=== PATIENT | female | born 1980 | race African-American/Black ===

== ENCOUNTER 2017-09-15 16:00 | Emergency (ER) | payer OTHER, MEDICAID ==
[~2017-09-15] VITALS: Ht 160 cm; Wt 87.0 kg
[~2017-09-15 16:00] MED LIST: IBUP800T23 PO; METH500T3 PO
[2017-09-15 16:01] VITALS: BP 170/118; PULSE 97; RESP 18; TEMP 98.7; O2SAT 97
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
[2017-09-15] MEDS ORDERED: ORPHENADRINE INJ 60 MG/2 ML AMP IM ONE (17:15)
[2017-09-15] MEDS ORDERED: KETOROLAC TROMETHAMINE 60 MG/2 ML (IM) VIAL IM ONE (17:15)
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
[2017-09-15] MEDS ORDERED: ROBA500T PO (17:59)
== END 2017-09-15 18:34 | disposition home or self-care (01) ==
LOC: NEPD 16:00
DX: S40.012A Contusion of left shoulder, initial encounter (principal); S50.02XA Contusion of left elbow, initial encounter; M62.830 Muscle spasm of back; V43.52XA Car driver injured in collision with other type car in traffic accident, initial encounter
CPT/HCPCS: 73030; 73080; 73090; 96372; 99284; J1885; J2360

== ENCOUNTER 2017-10-29 03:11 | Emergency (ER) | payer MEDICAID ==
[~2017-10-29] VITALS: Ht 160 cm; Wt 85.0 kg
[~2017-10-29 03:11] MED LIST changes: +ROBA500T PO
[2017-10-29 03:14] VITALS: BP 144/95; PULSE 106; RESP 16; TEMP 98.2; O2SAT 99
[2017-10-29] MEDS ORDERED: HYDR-3580 PO (03:27)
[2017-10-29] MEDS ORDERED: SODIUM CHLOR 0.9% 1000 ML INJ 1,000 ML IV ONE (04:00)
[2017-10-29] MEDS ORDERED: AMOX875T PO (04:54)
--- NOTE | 2017-10-29 04:54 | PD ---
HPI Chief Complaint: Cold / Flu Symptoms Time Seen by Provider: 03:19 Travel History International Travel<30 days: No Contact w/Intl Traveler<30days: No Traveled to known affect area: No History of Present Illness HPI Patient is a 37-year-old female presenting to emergency room for evaluation of sore throat, body aches, fever, chills. Patient states his symptoms started 1 day ago, she reports that it hurts to swallow but denies any dysphagia or drooling. Patient took acetaminophen at 10 PM and then ibuprofen at 2:30 AM this morning. Symptom onset was gradual, alleviating factors include medications. There are no exacerbating factors. Patient states her pain is 3 out of 10 and states that sore and aching. Patient denies any significant past medical history. PFSH Past Medical History Anemia: Yes (DURING ) Blood Disorders: No Heart Rhythm Problems: No Cancer: No High Cholesterol: No Chemotherapy: No Chest Pain: No Congestive Heart Failure: No Diminished Hearing: No Endocrine: No Gastrointestinal Disorders: Yes (GALLBLADDER DISEASE WITH GALL STONES) Genitourinary: No Hypertension: No Immune Disorder: No Musculoskeletal: No Neurologic: No Psychiatric: No Respiratory: No Immunizations Current: Yes Myocardial Infarction: No Radiation Therapy: No ?: Not : 5 Para: 4 Miscarriage: 1 Past Surgical History AICD: No Section: Yes (x4) Joint Replacement: No Pacemaker: No Other Surgery: No Social History Alcohol Use: Yes (socially) Tobacco Use: No Substance Use: No Allergies-Medications (Allergen,Severity, Reaction): Coded Allergies: No Known Allergies (Verified Adverse Reaction, Unknown, 10/29/17) Reported Meds & Prescriptions Reported Meds & Active Scripts Active Reported Hydrocodone-Acetaminophen 7.5 Mg-325 Mg Tab 1 Tab PO Q6H PRN Review of Systems Except as stated in HPI: all other systems reviewed are Neg General / Constitutional: Positive: Fever, Chills HENT: Positive: Sore Throat Cardiovascular: No: Chest Pain or Discomfort Respiratory: No: Cough, Shortness of Breath Gastrointestinal: No: Nausea, Abdominal Pain Genitourinary: No: Dysuria Musculoskeletal: No: Myalgias Physical Exam Narrative GENERAL: Well-developed, well-nourished female. Presented in no acute distress. SKIN: Warm and dry. HEAD: Atraumatic. Normocephalic. EYES: Pupils equal and round. No scleral icterus. No injection or drainage. ENT: No nasal bleeding or discharge. Mucous membranes pink and moist. Erythema noted to posterior pharynx, no tonsillar hypertrophy. Airways patent, uvula is midline. NECK: Trachea midline. No JVD. CARDIOVASCULAR: Regular rate and rhythm. RESPIRATORY: No accessory muscle use. Clear to auscultation. Breath sounds equal bilaterally. GASTROINTESTINAL: Abdomen soft, non-tender, nondistended. Hepatic and splenic margins not palpable. MUSCULOSKELETAL: Extremities without clubbing, cyanosis, or edema. No obvious deformities. NEUROLOGICAL: Awake and alert. No obvious cranial nerve deficits. Motor grossly within normal limits. Five out of 5 muscle strength in the arms and legs. Normal speech. PSYCHIATRIC: Appropriate mood and affect; insight and judgment normal. Data Data Last Documented VS Vital Signs Date Time Temp Pulse Resp B/P (MAP) Pulse Ox O2 Delivery O2 Flow Rate FiO2 10/29/17 03:14 98.2 106 16 144/95 (111) 99 Orders Orders Group A Rapid Strep Screen (10/29/17 03:48) Influenzae A/B Antigen (10/29/17 03:48) Iv Access Insert/Monitor (10/29/17 03:48) Sodium Chlor 0.9% 1000 Ml Inj (Ns 1000 M (10/29/17 04:00) Amoxicillin (Trimox) (10/29/17 05:00) MDM Medical Decision Making Medical Screen Exam Complete: Yes Emergency Medical Condition: Yes Interpretation(s) Vital Signs Date Time Temp Pulse Resp B/P (MAP) Pulse Ox O2 Delivery O2 Flow Rate FiO2 10/29/17 03:14 98.2 106 16 144/95 (111) 99 Differential Diagnosis Influenza versus strep versus viral syndrome versus other Narrative Course Patient's 37-year-old female presented to emergency for evaluation of sore throat, body aches, fevers. Patient is mildly tachycardic on arrival, IV fluids ordered, influenza and strep screen ordered. Patient is resting comfortably. She took ibuprofen 2 hours prior to arrival. Patient is negative for influenza, strep is positive for group A strep. Patient will be given dose of amoxicillin now. She is encouraged to complete full course, maintain adequate fluid intake, continue with Tylenol and/or ibuprofen as needed and as directed for fevers and body aches. She is encouraged to follow-up with her primary doctor return to emergency department any new or worsening symptoms. Patient verbalizes understanding of directions. Patient stable for discharge. Diagnosis Primary Impression: Pharyngitis due to group A beta hemolytic Streptococci Referrals: Primary Care Physician 3 days Patient Instructions: General Instructions, Strep Throat (ED) Additional Instructions: Complete full course of antibiotics as prescribed Maintain adequate fluid intake Continue alternating acetaminophen and ibuprofen as needed and as directed for fevers and body aches Return to emergency department for any new or worsening symptoms Follow-up with your primary doctor Med/Other Pt SpecificInfo: Prescription(s) given Scripts Amoxicillin (Amoxicillin) 875 Mg Tab 875 MG PO BID for Infection for 10 Days, #20 TAB 0 Refills Prov: Faith Szymanski 10/29/17 Disposition: 01 DISCHARGE HOME Condition: Stable Faith Szymanski Oct 29, 2017 04:54
[2017-10-29] MEDS ORDERED: AMOXICILLIN 875 MG TAB PO ONE (05:00)
== END 2017-10-29 05:16 | disposition home or self-care (01) ==
LOC: NEPD 03:11
DX: J02.0 Streptococcal pharyngitis (principal); R00.0 Tachycardia, unspecified; D64.9 Anemia, unspecified
CPT/HCPCS: 87804; 87880; 96360; 99284; J7030

== ENCOUNTER 2018-03-19 06:23 | Emergency (ER) | payer MEDICAID ==
[~2018-03-19 06:23] MED LIST changes: +AMOX875T PO; +HYDR-3580 PO; -IBUP800T23 PO; -METH500T3 PO; -ROBA500T PO
[2018-03-19 06:26] VITALS: BP 145/98; PULSE 84; RESP 17; TEMP 99.1; O2SAT 98
[2018-03-19] MEDS ORDERED: SODIUM CHLORIDE 0.9% FLUSH 10 ML FLUSH IVF PRN (07:30)
--- NOTE | 2018-03-19 07:39 | RADRPT ---
EXAM DATE: 03/19/2018 7:34 AM EDT AGE/SEX: 37 years / Female INDICATIONS: Chest pain, short of breath. CLINICAL DATA: This is the patient's initial encounter. Patient reports that signs and symptoms have been present for 2 days and indicates a pain score of 3/10. MEDICAL/SURGICAL HISTORY: None. None. COMPARISON: [facility] [place]ST SINGLE AP, 08/30/2012. . FINDINGS: A single AP view of the chest demonstrates the lungs to be symmetrically aerated without evidence of mass, infiltrate or effusion. The cardiomediastinal contours are unremarkable. Osseous structures a re intact. CONCLUSION: No acute findings. Electronically signed by: Jeovanny Juarez MD 03/19/2018 7:38 AM EDT
[2018-03-19 07:54] LABS: AUTOMATED NEUTROPHIL # 3.8 TH/MM3 (1.8-7.7); BASOPHIL # 0.1 TH/MM3 (0-0.2); BASOPHIL % 0.8 % (0.0-2.0); EOSINOPHIL # 0.2 TH/MM3 (0-0.4); EOSINOPHIL % 2.1 % (0.0-4.0); HEMATOCRIT 28.9 % (35.0-46.0); HEMOGLOBIN 9.3 GM/DL (11.6-15.3); LYMPH % 36.9 % (9.0-44.0); LYMPHOCYTE # 2.9 TH/MM3 (1.0-4.8); MEAN CELL VOLUME 76.6 FL (80.0-100.0); MEAN CORPUSCULAR HEMOGLOBIN 24.7 PG (27.0-34.0); MEAN CORPUSCULAR HGB CONC 32.2 % (32.0-36.0); MEAN PLATELET VOLUME 7.3 FL (7.0-11.0); MONO % 11.5 % (0.0-8.0); MONOCYTE # 0.9 TH/MM3 (0-0.9); NEUT % 48.7 % (16.0-70.0); PLATELET COUNT 400 TH/MM3 (150-450); RED BLOOD COUNT 3.77 MIL/MM3 (4.00-5.30); RED CELL DISTRIBUTION WIDTH 16.1 % (11.6-17.2); WHITE BLOOD COUNT 7.8 TH/MM3 (4.0-11.0)
[2018-03-19 08:07] LABS: BICARBONATE 25.3 MEQ/L (21.0-32.0); BLOOD UREA NITROGEN 12 MG/DL (7-18); CALCIUM 8.9 MG/DL (8.5-10.1); CHLORIDE 106 MEQ/L (98-107); CREATININE 0.89 MG/DL (0.50-1.00); GLOMERULAR FILTRATION RATE 87 ML/MIN (>89); GLUCOSE,RANDOM 90 MG/DL (74-106); SODIUM (NA) 139 MEQ/L (136-145)
[2018-03-19 08:11] LABS: TROPONIN I LESS THAN 0.02 NG/ML (0.02-0.05)
--- NOTE | 2018-03-19 08:34 | PD ---
HPI . Chest pain Chief Complaint: Respiratory Symptoms Time Seen by Provider: 07:01 Travel History International Travel<30 days: No Contact w/Intl Traveler<30days: No Traveled to known affect area: No History of Present Illness HPI Patient presents with chief complaint of chest pain shortness of breath. Onset was 1-2 weeks ago. Symptoms are worse when laying down. Severity is 3/10. She denies cough or fever. PFSH Past Medical History Anemia: Yes (DURING ) Blood Disorders: No Heart Rhythm Problems: No Cancer: No High Cholesterol: No Chemotherapy: No Chest Pain: No Congestive Heart Failure: No Diminished Hearing: No Endocrine: No Gastrointestinal Disorders: Yes (GALLBLADDER DISEASE WITH GALL STONES) Genitourinary: No Hypertension: No Immune Disorder: No Musculoskeletal: No Neurologic: No Psychiatric: No Respiratory: No Immunizations Current: Yes Myocardial Infarction: No Radiation Therapy: No Tetanus Vaccination: Unknown Influenza Vaccination: No ?: Not LMP: 02/22/2018 : 5 Para: 4 Miscarriage: 1 Past Surgical History AICD: No Section: Yes (x4) Joint Replacement: No Pacemaker: No Other Surgery: No Social History Alcohol Use: Yes (socially) Tobacco Use: No Substance Use: No Allergies-Medications (Allergen,Severity, Reaction): Coded Allergies: No Known Allergies (Verified Adverse Reaction, Unknown, 03/19/18) Reported Meds & Prescriptions Reported Meds & Active Scripts Active Amoxicillin 875 Mg Tab 875 Mg PO BID 10 Days Reported Hydrocodone-Acetaminophen 7.5 Mg-325 Mg Tab 1 Tab PO Q6H PRN Review of Systems Except as stated in HPI: all other systems reviewed are Neg Physical Exam Narrative Vital Signs Date Time Temp Pulse Resp B/P (MAP) Pulse Ox O2 Delivery O2 Flow Rate FiO2 03/19/18 06:26 99.1 84 17 145/98 (114) 98 GENERAL: Awake and alert and in no acute distress. SKIN: warm/dry. HEAD: Normocephalic. EYES: Pupils equal and round. Extraocular movements are intact. ENT: Mucous membranes pink and moist. NECK: Supple. Full range of motion without pain.. CARDIOVASCULAR: Regular rate and rhythm. Heart sounds are normal. RESPIRATORY: No accessory muscle use. Clear to auscultation. Breath sounds equal bilaterally. MUSCULOSKELETAL: No obvious deformities. Normal muscle tone. No calf tenderness. No leg edema. NEUROLOGICAL: Awake and alert. No obvious cranial nerve deficits. Motor grossly within normal limits. Normal speech. PSYCHIATRIC: Appropriate mood and affect; insight and judgment normal. Data Data Last Documented VS Vital Signs Date Time Temp Pulse Resp B/P (MAP) Pulse Ox O2 Delivery O2 Flow Rate FiO2 03/19/18 06:26 99.1 84 17 145/98 (114) 98 Orders Orders Complete Blood Count With Diff (03/19/18 07:17) Basic Metabolic Panel (Bmp) (03/19/18 07:17) B-Type Natriuretic Peptide (03/19/18 07:17) D-Dimer (03/19/18 07:17) Troponin I (03/19/18 07:17) Iv Access Insert/Monitor (03/19/18 07:17) Electrocardiogram (03/19/18 07:17) Chest, Single Ap (03/19/18 07:17) Sodium Chloride 0.9% Flush (Ns Flush) (03/19/18 07:30) Labs Laboratory Tests Test 03/19/18 07:42 White Blood Count 7.8 TH/MM3 Red Blood Count 3.77 MIL/MM3 Hemoglobin 9.3 GM/DL Hematocrit 28.9 % Mean Corpuscular Volume 76.6 FL Mean Corpuscular Hemoglobin 24.7 PG Mean Corpuscular Hemoglobin Concent 32.2 % Red Cell Distribution Width 16.1 % Platelet Count 400 TH/MM3 Mean Platelet Volume 7.3 FL Neutrophils (%) (Auto) 48.7 % Lymphocytes (%) (Auto) 36.9 % Monocytes (%) (Auto) 11.5 % Eosinophils (%) (Auto) 2.1 % Basophils (%) (Auto) 0.8 % Neutrophils # (Auto) 3.8 TH/MM3 Lymphocytes # (Auto) 2.9 TH/MM3 Monocytes # (Auto) 0.9 TH/MM3 Eosinophils # (Auto) 0.2 TH/MM3 Basophils # (Auto) 0.1 TH/MM3 CBC Comment DIFF FINAL Differential Comment D-Dimer Quantitative (PE/DVT) 0.41 MG/L FEU Blood Urea Nitrogen 12 MG/DL Creatinine 0.89 MG/DL Random Glucose 90 MG/DL Calcium Level 8.9 MG/DL Sodium Level 139 MEQ/L Potassium Level 3.9 MEQ/L Chloride Level 106 MEQ/L Carbon Dioxide Level 25.3 MEQ/L Anion Gap 8 MEQ/L Estimat Glomerular Filtration Rate 87 ML/MIN Troponin I LESS THAN 0.02 NG/ML B-Type Natriuretic Peptide 11 PG/ML MDM Medical Decision Making Medical Screen Exam Complete: Yes Emergency Medical Condition: Yes Interpretation(s) EKG shows a normal sinus with no acute ischemic change. Differential Diagnosis Differential diagnosis of chest pain includes but is not limited to musculoskeletal pain, pulmonary embolism, acute coronary syndrome, pneumonia, pleurisy Differential diagnosis of dyspnea includes but is not limited to congestive heart failure, pneumonia, wheezing, pneumothorax, pulmonary embolism Narrative Course This patient presents with a 1-2 week history of intermittent chest pain and shortness of breath. She has a normal physical exam. She has a normal EKG. Last Impressions Chest X-Ray 03/19/18 0717 Signed Impressions: CONCLUSION: No acute findings. CBC & BMP Diagram 03/19/18 07:42 Calcium Level 8.9 Troponin less than 0.02 BNP 11 D-dimer 0.41 Her symptoms may be secondary to anemia. She does have a history of anemia. I will discharge her to home with instructions to take her iron. She reports that she does have iron at home. She should follow-up with her primary care provider in a couple weeks for recheck. Diagnosis Primary Impression: Chest pain Qualified Codes: R07.9 - Chest pain, unspecified Additional Impressions: Dyspnea Qualified Codes: R06.00 - Dyspnea, unspecified Anemia Qualified Codes: D50.9 - Iron deficiency anemia, unspecified Patient Instructions: Anemia (DC), General Instructions Additional Instructions: Follow-up with your primary care doctor in about 2 weeks for recheck of your blood count. Take your iron twice a day. Disposition: DISCHARGE HOME Condition: Stable Katie Gallegos MD Mar 19, 2018 08:34
--- NOTE | 2018-03-19 18:23 | EKG ---
Date Performed: 03/19/2018 Time Performed: 07:24:54 PTAGE: 37 years EKG: Sinus rhythm WITH SINUS ARRHYTHMIA NORMAL ECG PREVIOUS TRACING : 08/04/2010 11.52 Since the previous tracing, no significant change noted DOCTOR: Bethany Haney Interpretating Date/Time 03/19/2018 18:21:55
== END 2018-03-19 09:13 | disposition home or self-care (01) ==
LOC: NEPE 06:23
DX: R07.9 Chest pain, unspecified (principal); R06.00 Dyspnea, unspecified; D50.9 Iron deficiency anemia, unspecified; Z87.19 Personal history of other diseases of the digestive system
CPT/HCPCS: 71045; 80048; 83880; 84484; 85025; 85379; 93005; 99285